=== PATIENT | male | born 1985 | race Hispanic/Latino ===

== ENCOUNTER 2017-04-09 11:58 | Emergency (ER) | payer SELFPAY ==
[~2017-04-09] VITALS: Ht 180.3 cm; Wt 81.6 kg
[2017-04-09] MEDS ORDERED: Lidocaine 1% 10mg/ml/Epi 0.005mg/ml 30ml vial INJ ONE (12:15)
[2017-04-09] MEDS ORDERED: Bacitracin Oint UD TOPIC ONE (12:15)
[2017-04-09 13:12] LABS: BASOPHILS % (AUTO) 2.8 % (0.0-2.0); EOSINOPHILS % (AUTO) 1.3 % (0.0-3.0); HEMATOCRIT 52.8 % (42.0-52.0); HEMOGLOBIN 17.6 G/DL (14.2-18.0); LYMPHOCYTES % (AUTO) 33.8 % (20.0-45.0); MEAN CORPUSCULAR VOLUME 95 FL (80-99); MONOCYTES % (AUTO) 16.3 % (1.0-10.0); NEUTROPHILS % (AUTO) 45.9 % (45.0-75.0); PLATELET COUNT 222 K/UL (150-450); RED BLOOD COUNT 5.57 M/UL (4.70-6.10); RED CELL DISTRIBUTION WIDTH 11.4 % (11.6-14.8); WHITE BLOOD COUNT 4.7 K/UL (4.8-10.8)
[2017-04-09 13:26] LABS: ANION GAP 13 mmol/L (5-15); BLOOD UREA NITROGEN 8 mg/dL (7-18); CALCIUM 8.9 MG/DL (8.5-10.1); CARBON DIOXIDE 27 MMOL/L (21-32); CHLORIDE 105 MMOL/L (98-107); CREATININE 0.7 MG/DL (0.55-1.30); POTASSIUM 3.6 MMOL/L (3.5-5.1); SODIUM 145 MMOL/L (136-145)
[2017-04-09 13:31] LABS: ALANINE AMINOTRANSFERASE 495 U/L (12-78); ALKALINE PHOSPHATASE 68 U/L (46-116); ASPARTATE AMINO TRANSFERASE 291 U/L (15-37); BILIRUBIN,TOTAL 0.2 MG/DL (0.2-1.0); CREATINE KINASE 452 U/L (26-308)
[2017-04-09 14:12] VITALS: BP 132/85
[2017-04-09 14:14] VITALS: BP 130/80
--- NOTE | 2017-04-09 15:50 | Diagnostic Imaging Report ---
Indication: Cough Technique: One view of the chest Comparison: none Findings: Inspiration is suboptimal. The heart is mildly enlarged. There is some crowding of vascular markings at the lung bases and possibly some atelectasis on the right. The lungs and pleural spaces are otherwise clear. Impression: Mild cardiomegaly Hypoventilatory exam, as described. No definite acute process
--- NOTE | 2017-04-10 02:22 | Emergency Room Report ---
History of Present Illness General Chief Complaint: Alcohol Intoxication Source: EMS Present Illness HPI Paramedics were called for patient with unsteady gait and possible alcohol ingestion. Patient apparently stumbled and hit L lower lip during their assessment. Patient smells of alcohol to them. Patient not answering questions. He does agree to be evaluated. Allergies: Coded Allergies: No Known Allergies (Unverified , 02/14/15) UNABLE TO ASSESS (Unverified , 03/23/15) Patient History Past Medical History: see triage record Social History: Reports: alcohol use Reviewed Nursing Documentation: PMH: Agreed, PSxH: Agreed Nursing Documentation-PMH Past Medical History: No History, Except For History Of Psychiatric Problem: Yes - ETOH ABUSE Physical Exam Vital Signs Date Time Temp Pulse Resp B/P (MAP) Pulse Ox O2 Delivery O2 Flow Rate FiO2 04/09/17 11:54 98.8 80 16 132/85 97 Room Air General Appearance: lethargic, other Head: normocephalic Eyes: bilateral eye abnormal EOM - nystagmus, bilateral eye Scleral Injection ENT: moist mucus membranes Neck: full range of motion, supple Respiratory: lungs clear, normal breath sounds Cardiovascular #1: regular rate, rhythm Cardiovascular #2: 2+ radial (L) Gastrointestinal: normal inspection, non tender, soft, decreased bowel sounds Musculoskeletal: digits/nails normal, normal range of motion, non-tender Neurologic: motor strength/tone normal, DTRs symmetric, sensory intact, other - ataxia Psychiatric: other - awake, but sleepy/somewhat lethargic Skin: laceration - superficial L lower lip = 1.5 cm Medical Decision Making Diagnostic Impression: Primary Impression: Acute alcoholic intoxication Qualified Codes: F10.929 - Alcohol use, unspecified with intoxication, unspecified Additional Impression: Contusion, lip Qualified Codes: S00.531A - Contusion of lip, initial encounter ER Course Patient brought in for alleged alcohol ingestion and trauma to L lower lip. DDX alcohol intoxication, facial trauma, electrolyte abnormalities amongst others. Evaluation with labs and CT. Will treat with IV hydration and repeated exams. Laceration on lip may need sutures (appears superficial). Patient moving and unable to get CT. Will follow clinically. Labs with elevated BA, rest unremarkable. Patient trying to leave. Soft restraints ordered. Patient removed soft restrains himself and ambulated out of ED without ataxia. Unable to discuss risks of leaving with patient. Laboratory Tests Test 04/09/17 12:20 04/09/17 12:35 Urine Opiates Screen Negative (NEGATIVE) Urine Barbiturates Screen Negative (NEGATIVE) Phencyclidine (PCP) Screen Negative (NEGATIVE) Urine Amphetamines Screen Negative (NEGATIVE) Urine Benzodiazepines Screen Negative (NEGATIVE) Urine Cocaine Screen Negative (NEGATIVE) Urine Marijuana (THC) Screen Negative (NEGATIVE) White Blood Count 4.7 K/UL (4.8-10.8) L Red Blood Count 5.57 M/UL (4.70-6.10) Hemoglobin 17.6 G/DL (14.2-18.0) Hematocrit 52.8 % (42.0-52.0) H Mean Corpuscular Volume 95 FL (80-99) Mean Corpuscular Hemoglobin 31.6 PG (27.0-31.0) H Mean Corpuscular Hemoglobin Concent 33.3 G/DL (32.0-36.0) Red Cell Distribution Width 11.4 % (11.6-14.8) L Platelet Count 222 K/UL (150-450) Mean Platelet Volume 7.2 FL (6.5-10.1) Neutrophils (%) (Auto) 45.9 % (45.0-75.0) Lymphocytes (%) (Auto) 33.8 % (20.0-45.0) Monocytes (%) (Auto) 16.3 % (1.0-10.0) H Eosinophils (%) (Auto) 1.3 % (0.0-3.0) Basophils (%) (Auto) 2.8 % (0.0-2.0) H Sodium Level 145 MMOL/L (136-145) Potassium Level 3.6 MMOL/L (3.5-5.1) Chloride Level 105 MMOL/L (98-107) Carbon Dioxide Level 27 MMOL/L (21-32) Anion Gap 13 mmol/L (5-15) Blood Urea Nitrogen 8 mg/dL (7-18) Creatinine 0.7 MG/DL (0.55-1.30) Estimate Glomerular Filtration Rate > 60 mL/min (>60) Glucose Level 91 MG/DL (74-106) Calcium Level 8.9 MG/DL (8.5-10.1) Total Bilirubin 0.2 MG/DL (0.2-1.0) Aspartate Amino Transferase (AST) 291 U/L (15-37) H Alanine Aminotransferase (ALT) 495 U/L (12-78) H Alkaline Phosphatase 68 U/L (46-116) Total Creatine Kinase 452 U/L (26-308) H Total Protein 7.9 G/DL (6.4-8.2) Albumin 4.0 G/DL (3.4-5.0) Globulin 3.9 g/dL Albumin/Globulin Ratio 1.0 (1.0-2.7) Salicylates Level 0.8 ug/mL (2.8-20) L Acetaminophen Level < 2 MCG/ML (10-30) L Serum Alcohol 531 mg/dL Last Vital Signs Date Time Temp Pulse Resp B/P (MAP) Pulse Ox O2 Delivery O2 Flow Rate FiO2 04/09/17 14:14 78 16 130/80 98 04/09/17 14:12 98.8 Room Air Status: improved Disposition: ELOPED Condition: Unknown Referrals: NOT CHOSEN TRISHA/,REFERRING (PCP) Ian Jon M.D. Apr 10, 2017 02:22
== END 2017-04-09 14:10 | disposition left against medical advice (07) ==
LOC: EDBD 11:58 → EMR 12:40
DX: F10.129 Alcohol abuse with intoxication, unspecified (principal); S00.531A Contusion of lip, initial encounter; W19.XXXA Unspecified fall, initial encounter; Y92.9 Unspecified place or not applicable; R05 Cough
CPT/HCPCS: 36415; 71045; 80053; 80307; 82550; 85025; 96360; 96361; 99284; G0480; 80329

== ENCOUNTER 2018-07-30 11:57 | Emergency (ER) | payer SELFPAY ==
[~2018-07-30] VITALS: Ht 170.2 cm; Wt 86.2 kg
[~2018-07-30 11:57] MED LIST: TYLENOL EXTRA500 MG ORAL; UNOBMED
[2018-07-30] MEDS ORDERED: UNOBMED (12:05)
[2018-07-30 12:17] VITALS: BP 115/46
--- NOTE | 2018-07-30 12:22 | Emergency Room Report ---
History of Present Illness General Chief Complaint: Alcohol Intoxication Source: EMS Present Illness HPI Patient was found drinking outside of [id number] restaurant. Then he went into a restaurant and laid down. Because of that paramedics were contacted. Patient was prior further evaluation. Patient appears fairly intoxicated. He admits to drinking alcohol. Denies any pain anywhere. He is arousable maintain his airway but goes back to sleep. No other complaints are noted. Patient appears disheveled. No other modifying factors. No other associated signs and symptoms. No other complaints were noted. Allergies: Coded Allergies: UNABLE TO ASSESS (Unverified , 07/30/18) Patient History Past Medical History: unable to obtain Past Surgical History: unable to obtain Pertinent Family History: unable to obtain Social History: Reports: alcohol use Reviewed Nursing Documentation: PMH: Agreed; PSxH: Agreed Nursing Documentation-PMH Past Medical History: No Stated History Review of Systems All Other Systems: limited - Poor mental status Physical Exam Vital Signs Date Time Temp Pulse Resp B/P (MAP) Pulse Ox O2 Delivery O2 Flow Rate FiO2 07/30/18 11:52 97.9 84 18 115/46 (69) 100 Room Air Sp02 EP Interpretation: reviewed, normal General Appearance: Stupor Head: normocephalic, atraumatic Eyes: bilateral eye normal inspection, bilateral eye PERRL ENT: normal ENT inspection, hearing grossly normal, dry mucus membranes Neck: normal inspection, full range of motion, supple, no bony tend Respiratory: normal inspection, lungs clear, normal breath sounds, no respiratory distress, no retraction, no wheezing Cardiovascular #1: regular rate, rhythm, no edema Gastrointestinal: normal inspection, normal bowel sounds, non tender, soft, no guarding, no hernia Genitourinary: no CVA tenderness Musculoskeletal: normal inspection, back normal, normal range of motion Neurologic: other - Grossly nonfocal. However patient intoxicated Psychiatric: other - Intoxicated, poor insight Skin: normal inspection, normal color, no rash Medical Decision Making Diagnostic Impression: Primary Impression: Acute alcoholic intoxication ER Course Patient presents emergency department today with acute altered mental status. Differential considerations include drug abuse, and cranial injury, alcohol abuse his name few. Patient's exam is consistent with alcohol abuse. There is no evidence of any intracranial injury. Patient admits to abusing alcohol. Therefore I felt that was reasonable to monitor patient. We will continue to monitor patient until patient is clinically sober. At that time patient will be discharged. Case was signed out to Dr. Joseph Lozada for final disposition. Last Vital Signs Date Time Temp Pulse Resp B/P (MAP) Pulse Ox O2 Delivery O2 Flow Rate FiO2 07/30/18 11:52 97.9 84 18 115/46 (69) 100 Room Air Status: improved Disposition: HOME, SELF-CARE Condition: Stable Eddie Hobbs MD July 30, 2018 12:22
--- NOTE | 2018-07-30 12:23 | NUR ---
ED Nurse Note:pt. was brought in by Js Dunham with ETOH, he is A/O on arrival no signs of distress noted
[2018-07-30 18:23] VITALS: BP 108/49
--- NOTE | 2018-07-30 18:24 | NUR ---
ED Nurse Note:pt. still sleeping no signs of distress noted
--- NOTE | 2018-07-30 19:15 | NUR ---
ED Nurse Note:homeless d/c forms were filled in and signed by pt., he was provided with food clothes, senior living information and bus tockens, he is A/Ox4 ambulating with steady gait, VSS, verbalized understanding of d/c instructions
[2018-07-30 19:20] VITALS: BP 108/49
== END 2018-07-30 19:26 | disposition home or self-care (01) ==
LOC: EDBD 11:57 → MERGE 13:43 → EDBD 13:43 → EMR 13:43
DX: F10.129 Alcohol abuse with intoxication, unspecified (principal); R41.82 Altered mental status, unspecified
CPT/HCPCS: 96360; 99284